=== PATIENT | female | born 1955 | race Asian ===

== ENCOUNTER 2022-08-20 16:18 | Emergency (ER) | payer OTHER ==
[~2022-08-20] VITALS: Ht 160 cm; Wt 82.6 kg
[2022-08-20 16:18] VITALS: BP 138/86; TEMP 97.4
[~2022-08-20 16:18] MED LIST: ATOR20TA2 PO; CETI10TA PO; CHOL100034 PO; DOCU100C10 PO; DQZATE100 MG PO; EXCEDRIN EXTRA1 TAB PO; HYDR5TAB9 PO; LEVSIN0.125 MG PO; LORA0.5T17 PO; MAGNSUS68 PO; MILK OF MA2400 MG/10 PO; MORPHINE CONCENTRATE PO; QUET25TA2 PO; SEROQUEL25 MG PO
[2022-08-20 16:48] LABS: PLATELET COUNT 204 K/uL (152-353)
[2022-08-20 16:53] LABS: POTASSIUM 3.4 mmol/L (3.6-5.2)
[2022-08-20] MEDS ORDERED: LORA0.5T17 PO (19:32)
[2022-08-20] MEDS ORDERED: LIPITOR20 MG PO (19:33)
[2022-08-20] MEDS ORDERED: QUET25TA2 PO (19:34)
== END 2022-08-20 18:02 | disposition still patient (30) ==
LOC: ED 16:18
PROVIDERS: Emergency Medicine
DX: F03.911 Unspecified dementia, unspecified severity, with agitation (principal); Z11.52 Encounter for screening for COVID-19; Z04.6 Encounter for general psychiatric examination, requested by authority
CPT/HCPCS: 36415; 80053; 81002; 85027; 87635; 93005; 99283; U0003

== ENCOUNTER 2022-12-23 20:49 | Emergency (ER) | payer OTHER ==
[~2022-12-23] VITALS: Ht 152.4 cm; Wt 79.4 kg
[~2022-12-23 20:49] MED LIST changes: +DIPH50IN IM; +HALO5INJ3 IM; +LIPITOR20 MG PO; +LORA2INJ21 IM; +QUET100T2 PO
[2022-12-23 20:50] VITALS: BP 127/74; TEMP 98.6
[2022-12-23 21:37] LABS: PLATELET COUNT 232 K/uL (152-353)
[2022-12-23 21:49] LABS: POTASSIUM 3.9 mmol/L (3.6-5.2)
[2022-12-24] MEDS ORDERED: MILK OF MA400 MG/5 M PO (07:50)
[2022-12-24] MEDS ORDERED: QUETIAPINE200 MG PO (07:50)
== END 2022-12-23 22:00 | disposition other institution (70) ==
LOC: ED 20:49
PROVIDERS: Emergency Medicine
DX: G30.9 Alzheimer's disease, unspecified (principal); F02.80 Dementia in other diseases classified elsewhere, unspecified severity, without behavioral disturbance, psychotic disturbance, mood disturbance, and anxiety; R45.1 Restlessness and agitation
CPT/HCPCS: 80053; 85027; 87635; 93005; 99283; U0003